=== PATIENT | female | born 1955 | race Hispanic/Latino ===

== ENCOUNTER → 2018-03-29 | Outpatient (CLI) | payer BC ==
[~2018-03-29] MED LIST: IOPAMIDOL 370 MG/ML 200 ML INFUS..BTL INJ ONE; SODIUM CHLORIDE 0.9% 50ML 50 ML ONE
[2018-03-29 15:59] LABS: BLOOD UREA NITROGEN 12 mg/dL (7-26); BUN/CREATININE RATIO 17 (6-25); CREATININE, SERUM 0.72 mg/dL (0.57-1.11); EST GLOMERULAR FILTRATION RATE > 60 ML/MIN (60-)
--- NOTE | 2018-03-29 16:16 | Diagnostic Imaging Report ---
EXAMINATION: CHEST 2 VIEWS INDICATION: \[id number] \S\[id number] \S\COUGH COMPARISON: None FINDINGS: PA and lateral views TUBES and LINES: None. LUNGS: Lungs are well inflated. Bilateral hilar peribronchial wall thickening. There is no evidence of pneumonia or pulmonary edema. PLEURA: No pleural effusion or pneumothorax. HEART AND MEDIASTINUM: The cardiac silhouette is within normal limits. Tortuous thoracic aorta. BONES AND SOFT TISSUES: No acute osseous lesion. Soft tissues are unremarkable. UPPER ABDOMEN: No free air under the diaphragm. IMPRESSION: Bilateral hilar peribronchial wall thickening may relate to reactive airways disease or viral infection. Signed by: Dr. Latisha Ku M.D. on 03/29/2018 4:13 PM
--- NOTE | 2018-03-29 16:28 | Diagnostic Imaging Report ---
EXAM: BONE MINERAL DENSITY HISTORY: Bone mineralization evaluation COMPARISON: None DISCUSSION: Evaluation of the left hip and lumbar spine was performed utilizing DEXA Hologic bone densitometer. The study is technically adequate. Left hip femoral neck bone mineral density: 0.411 g/cm2, T-score is -3.9, Z-score is -2.7. Left hip total bone mineral density: 0.599 g/cm2, T-score is -2.7, Z-score is -1.8. Lumbar spine total bone mineral density: 0.87 gm/cm2, T-score is -1.6, Z-score is -0.1. Impression: Bone mineralization by WHO Classification is osteoporosis, the fracture risk is increased. Signed by: Dr. Puma Allred M.D. on 03/29/2018 4:25 PM
--- NOTE | 2018-03-29 17:16 | Diagnostic Imaging Report ---
EXAM: CT Abdomen and Pelvis WITH contrast INDICATION: \[id number] \S\[id number] \S\ABDOMINAL PAIN COMPARISON: None. TECHNIQUE: Abdomen and pelvis were scanned utilizing a multidetector helical scanner from the lung base to the pubic symphysis after administration of IV contrast. Coronal and sagittal reformations were obtained. Routine protocol was performed. Scan was performed when during portal venous phase. IV CONTRAST: 100 mL of Isovue-370 ORAL CONTRAST: Water RADIATION DOSE: Total DLP: 657 mGy*cm Estimated effective dose: (DLP x 0.015 x size factor) mSv COMPLICATIONS: None FINDINGS: LINES and TUBES: None. LOWER THORAX: Unremarkable HEPATOBILIARY: 8.2 x 6.0 cm low-attenuation well-defined hepatic cyst at the dome of the liver on series 2, image 10. No additional hepatic lesions. No biliary ductal dilation. GALLBLADDER: No radio-opaque stones or sludge. No wall thickening. SPLEEN: No splenomegaly. PANCREAS: No focal masses or ductal dilatation. ADRENALS: No adrenal nodules KIDNEYS/URETERS: Kidneys enhance symmetrically. No hydronephrosis. No cystic or solid mass lesions. No stones. GI TRACT: No abnormal distention, wall thickening, or evidence of bowel obstruction. Focal dilatation of the sigmoid colon, in the pelvis on series 2, image 57, without surrounding wall thickening of fatty stranding. Mild scattered diverticulosis throughout the sigmoid without diverticulitis. The appendix is elongated but normal in caliber containing a 2 mm nonobstructing calcified appendicolith in the tip, better seen on coronal image 74. No surrounding inflammatory changes or fluid collections to suggest appendicitis. PELVIC ORGANS/BLADDER: The urinary bladder appears unremarkable. The uterus is normal in size and homogeneous. No ovarian masses. LYMPH NODES: No lymphadenopathy. VESSELS: Unremarkable. PERITONEUM / RETROPERITONEUM: No free air or fluid. BONES: Degenerative disc at L5-S1. SOFT TISSUES: Unremarkable. IMPRESSION: 1. Large simple hepatic cyst, measuring up to 8.2 cm. This can be follow-up with right upper quadrant ultrasound in 6 months to demonstrate stability. 2. Elongated appendix containing a nonobstructing calcified appendicolith at the tip. No CT findings to suggest appendicitis. 3. Scattered diverticulosis of the sigmoid colon without diverticulitis. Signed by: Dr. Latisha Ku M.D. on 03/29/2018 5:12 PM
--- NOTE | 2018-03-29 17:27 | Diagnostic Imaging Report ---
EXAM: Transabdominal and Transvaginal Pelvic Ultrasound INDICATION: \[id number] \S\[id number] \S\RIGHT SIDE OVARIAN CYST COMPARISON: CT abdomen and pelvis 03/29/2018 TECHNIQUE: Grayscale transverse and sagittal transabdominal and transvaginal images were obtained of the pelvis. Transvaginal imaging was medically necessary to better evaluate the endometrium and the adnexa. CLINICAL HISTORY: 62 year old A1; last menstrual period: 15 years ago. FINDINGS: Uterus Orientation: Normal Size: 6.7 x 2.9 x 4.9 cm, Normal Mass: None Cervix: Normal Endometrium: Thickness: 0.9 cm, increased. Appearance: Homogeneous echotexture without focal thickening. Right ovary: Not visualized Left ovary: Size: 2.4 x 1.9 x 2.4 cm Mass/Cyst: None Adnexa: Normal Cul-de-sac: No free fluid IMPRESSION: Thickened endometrial stripe in this post menopausal female (0.9 cm). Recommend [employer] consultation and follow-up ultrasound in 4-6 weeks. Signed by: Dr. Latisha Ku M.D. on 03/29/2018 5:23 PM
== END ==
LOC: CT 14:04
PROVIDERS: ATTEND Emergency Medicine
DX: Z12.31 Encounter for screening mammogram for malignant neoplasm of breast (principal); M81.0 Age-related osteoporosis without current pathological fracture; R10.9 Unspecified abdominal pain; N83.201 Unspecified ovarian cyst, right side; R05 Cough
CPT/HCPCS: 36415; 71046; 74177; 76856; 77067; 77080; 82565; 84520; Q9967

== ENCOUNTER → 2022-12-02 | Outpatient (CLI) | payer MEDICARE ==
[~2022-12-02] MED LIST changes: +IOPAMIDOL 370 MG/ML 100 ML INFUS..BTL INJ ONE; -IOPAMIDOL 370 MG/ML 200 ML INFUS..BTL INJ ONE; -SODIUM CHLORIDE 0.9% 50ML 50 ML ONE
[2022-12-02 09:59] LABS: CREATININE, SERUM 0.74 mg/dL (0.57-1.11)
== END ==
LOC: CT 09:06
PROVIDERS: ATTEND Emergency Medicine
DX: R10.9 Unspecified abdominal pain (principal)
CPT/HCPCS: 36415; 74177; 82565; 84520; Q9967